=== PATIENT | male | born 1980 | race Caucasian/White ===

== ENCOUNTER 2021-02-23 13:36 | Emergency (ER) | payer BC, SELFPAY ==
--- NOTE | 2021-02-23 16:05 | XR_ITS ---
PROCEDURE INFORMATION: Exam: XR Chest Exam date and time: 02/23/2021 4:05 PM Age: 40 years old Clinical indication: Cough TECHNIQUE: Imaging protocol: XR of the chest. Views: 2 views. COMPARISON: CR XR CHEST 2V 04/25/2019 6:58 PM FINDINGS: Airway: Patent Lungs: Patchy/nodular opacification in the right suprahilar region, measuring up to 2 cm. Remainder of the lungs are grossly clear. Pleural spaces: Unremarkable. No pleural effusion. No pneumothorax. Heart/Mediastinum: Unremarkable. No cardiomegaly. Bones/joints: No acute skeletal abnormality or aggressive osseous lesion. IMPRESSION: 1. Opacification in the right suprahilar region may be related to acute infectious/inflammatory airspace disease versus a true pulmonary nodule. 2. No other acute thoracic pathology is otherwise noted. COMMENTS: Consider correlation with chest CT if clinically warranted.
[2021-02-23 16:16] VITALS: BP 116/76; PULSE 91; RESP 19; TEMP 37.3; O2SAT 98; BMI 36.7
--- NOTE | 2021-02-23 16:31 | HMH.EDUTC ---
[place] Disposition Clinical Impression: Bronchitis Disposition: Home, Self-Care Condition on Discharge: Good Instructions: DI for COVID-19 (Suspected or Confirmed ), Preventing the Spread of Coronavirus Discharge Instructions Additional Instructions: ? Start antibiotic today. Be sure to complete entire prescription even if feeling better ? Monitor temp. Tylenol every 4 hours as needed and / or ibuprofen every 6 hours as needed ( As long as your primary care physician has told you that it ok to take both. For fever/aches/pains ER if no less than 101 despite Tylenol or Motrin ? Humidifier/vaporizer or hot steamy shower ? Inhaler every 4-6 hours as needed like we discussed. If unsure how to use it, ask pharmacist to demonstrate how. Should help open airways and improve cough, wheezing, and shortness of breath ? Mucinex for your cough and congestion Be sure to drink lots of water. *Start steroid today. Helps with inflammation therefore, cough and wheezing. Follow directions on the package. Reviewed side effects. Patient reports taking them before. Follow up with your Family Doctor if no improvement Return if needed Follow up with your Family Doctor for Repeat chest xray and or CT if needed Follow up IMMEDIATELY for new or worsening of symptoms OR no noticeable improvement over the next 48-72 hours. 911 immediately for any life threatening symptoms such as chest pain or difficulty breathing You were tested for today for COVID19 your test result should be back in the next 24-48 hours, You was given handout for instructions to log onto the [facility] to view your result if you are unable to log on you may call You was given a handout with instructions for Self Quarantine and Self isolation for while you wait on test results and what to do if they are positive If you are positive the Health Dept will be contacting you also Make sure to take your Vitamins Vit. C Vit D and Zinc if you can take them Prescriptions: Doxycycline Monohydrate [Doxycycline [place] 100mg Tab] 100 mg PO Q12 7 Days #14 tab Transmission Status: Pending to [facility] #[id number] guaiFENesin [Mucinex 600mg tablet] 2 tab PO Q12H PRN #20 tab PRN Reason: Congestion Transmission Status: Pending to [facility] #[id number] predniSONE [Prednisone 20mg Tab] 20 mg PO BID 5 Days #10 tab Transmission Status: Pending to [facility] #[id number] Referrals: Chelo Zepeda MD [Primary Care Provider] - As needed Forms: Work/School Release Medical Decision Making - Clint Inquiry Pt receiving controlled substance: No Clint was queried for this patient: No Vital Signs: 02/23/21 16:16 Temperature 99.2 F Temperature Source Oral Pulse Rate [Right Brachial] 91 H Respiratory Rate 19 Blood Pressure [Right Arm] 116/76 Blood Pressure Mean [Right Arm] 89 Blood Pressure Source [Right Arm] Automatic Cuff Blood Pressure Position [Right Arm] Sitting 02 Sat by Pulse Oximetry 98 Oxygen Delivery Method Room Air Orders (Tests/Meds): ORDERS Category Date Time Status Full Resp Panel w/COVID ([facility]) Routine Lab 02/23/21 15:40 Received - Radiology Data #1 Image(s): Chest Image Reviewed: Yes I have reviewed radiologist's interpretation IMPRESSION: 1. Opacification in the right suprahilar region may be related to acute infectious/inflammatory airspace disease versus a true pulmonary nodule. 2. No other acute thoracic pathology is otherwise noted. Medical Decision Narrative: Discussed CT with patient as recommended by radiologist and he advised he would follow up with her PCP for further evaluation [place] HPI - General Stated complaint: soa, weak, diarrhea, body aches Time Seen by Provider: 02/23/21 16:31 Mode of Arrival: Ambulatory Source of Information: Patient Description of Symptoms (Recalled from Triage Doc. by RN): sob. fatigue HEENT Symptoms (Recalled from RN notes): Yes Resp Symptoms (Recalled from RN notes): Yes Skin Sympt
[2021-02-23 16:47] LABS: Adenovirus,PCR Not Detected (NotDetected); Bordetella Pertussis Not Detected (NotDetected); Chlamydophila Pneumoniae, PCR Not Detected (NotDetected); Coronavirus 229E Not Detected (NotDetected); Coronavirus NL63 Not Detected (NotDetected); Coronavirus OC43 Not Detected (NotDetected); Coronovirus HKU1,PCR Not Detected (NotDetected); Human Metapneumovirus Not Detected (NotDetected); Influenza A, PCR Not Detected (NotDetected); Influenza AH1, 2009 Not Detected (NotDetected); Influenza AH1, PCR Not Detected (NotDetected); Influenza AH3,PCR Not Detected (NotDetected); Influenza B, PCR Not Detected (NotDetected); Mycoplasma Pneumoniae, PCR Not Detected (NotDetected); Parainfluenza 1, PCR Not Detected (NotDetected); Parainfluenza 2, PCR Not Detected (NotDetected); Parainfluenza 3, PCR Not Detected (NotDetected); Parainfluenza 4, PCR Not Detected (NotDetected); Respiratory Syncytial Virus Not Detected (NotDetected); Rhinovirus/Enterovirus Not Detected (NotDetected)
[2021-02-23 17:31] VITALS: BP 116/76; PULSE 91; RESP 19; TEMP 37.3; O2SAT 98
[2021-02-23 18:03] LABS: Coronavirus 19, PCR Detected (NotDetected)
--- NOTE | 2021-02-24 16:22 | PC.NURSE ---
informed patient that he is positive
== END 2021-02-23 17:31 | disposition home or self-care (01) ==
PROVIDERS: Emergency Provider Nurse Practitioner; PCP Family Medicine
DX: U07.1 COVID-19 (principal); J20.9 Acute bronchitis, unspecified
CPT/HCPCS: 71046; 87581; 87632; 87798; 99202; C9803; G0463; U0003; U0005

== ENCOUNTER 2022-05-22 09:21 | Emergency (ER) | payer BC, SELFPAY ==
[2022-05-22 09:45] VITALS: BP 142/100; PULSE 100; RESP 20; TEMP 37.2; O2SAT 97; BMI 38.9
[2022-05-22 10:03] LABS: UTC Strep Screen (Rapid) Negative (Negative)
[2022-05-22 10:14] VITALS: BP 142/100; PULSE 100; RESP 20; TEMP 37.2; O2SAT 97
--- NOTE | 2022-05-22 10:22 | EXP.UTC ---
Discharge Plan Disposition Patient Disposition: Home, Self-Care Condition: Good Prescriptions Prescriptions: New prednisone [prednisone] 20 mg tablet 20 mg PO BID 5 Days Qty: 10 0RF amoxicillin-pot clavulanate 875-125 mg Tablet 1 tab PO Q12H Qty: 20 0RF No Action omeprazole 40 MG capsule,delayed release(DR/EC) 40 mg PO DAILY lisinopril 10 MG tablet 10 mg PO DAILY prednisone 20 MG tablet 20 mg PO BID 5 Days Qty: 10 0RF doxycycline monohydrate 100 MG tablet 100 mg PO Q12 7 Days Qty: 14 0RF guaifenesin 600 MG tablet extended release 12hr 2 tab PO Q12H PRN (Reason: Congestion) Qty: 20 0RF Referrals Follow up/Referrals: Daniela Adame [Primary Care Provider] - See instructions Activity Restrictions/Add. Instructions Additional Instructions/Restrictions: Take all meds as directed until gone Follow up with PCP or return to [facility] if not improving Clinical Impressions Clinical Impression: Right otitis media, Laceration of finger, Need for Tdap vaccination Discharge ED Provider: Yoana Bradshaw [facility] [place] H[place] General Stated complaint: Strep test, Sore throat, drainage Mode of Arrival: Ambulatory Source of Information: Patient Limitations: No Limitations Time Seen by Provider: 05/22/22 10:25 Description of Symptoms (Recalled from Triage Doc. by RN): PATIENT C/O SORE THROAT, COUGH, AND DRAINAGE X 3 DAYS HEENT Symptoms (Recalled from RN notes): Yes Resp Symptoms (Recalled from RN notes): Yes Skin Symptoms (Recalled from RN notes): No MS Symptoms (Recalled from RN notes): No Functional Status (Recalled from RN notes): WNL History of Present Illness Provider Complaint: Sore throat, drainage X 2-3 days. Fever this am. Denies sinus pressure or congestion. Denies ear pain. Denies cough. Denies nausea/vomiting/diarrhea. Cut the pads of his right thumb and 1st finger the other day and would also like to make sure they are not infected. Cannot recall exactly when he had his last tetanus shot Onset (ago): day(s) (3) Relieving factors: none Exacerbating factors: none Associated symptoms: fever/chills Treatments prior to arrival: other (cough drops) Related Data Home Medications Medication Instructions Recorded Confirmed lisinopril 10 mg tablet 10 mg PO DAILY bp 02/23/21 02/23/21 omeprazole 40 mg capsule,delayed 40 mg PO DAILY GERD 02/23/21 02/23/21 release Previous Rx's Medication Instructions Recorded doxycycline monohydrate 100 mg 100 mg PO Q12 7 days #14 tabs 02/23/21 tablet guaifenesin 600 mg tablet, 2 tab PO Q12H PRN Congestion #20 02/23/21 extended release 12 hr tabs prednisone 20 mg tablet 20 mg PO BID 5 days #10 tabs 02/23/21 amoxicillin 875 mg-potassium 1 tab PO Q12H #20 tabs 05/22/22 clavulanate 125 mg tablet prednisone 20 mg tablet 20 mg PO BID 5 days #10 tabs 05/22/22 Allergies Allergy/AdvReac Type Severity Reaction Status Date / Time No Known Allergies Allergy Verified 04/25/19 18:58 Worker's Comp Is this a Worker's Comp case?: [facility] Disclaimer: The information contained in this section may have been updated after the patient was seen, as this information can be updated by other users. Medical History (Updated 05/22/22 @ 10:38 by EDWINA Sanderson) Anxiety Asthma Hypertension Social History (Updated 05/22/22 @ 09:57 by Ne Rockwell RN) Smoking Status: Unknown if ever smoked alcohol intake: current current occupational status: other Travel in the last 8 weeks: None housing: house ROS Obtained: Yes All systems reviewed & no additional complaints except as documented Constitutional Constitutional: Reports fever(s) ENT Ears, Nose, Mouth, and Throat: Reports post nasal drip and Reports sore throat Integumentary/Breasts Skin/Breast: Reports as per HPI Physical Exam General General appearance: alert and in no apparent distress Head Head exam: atraumatic, normocephalic and normal inspection
== END 2022-05-22 10:58 | disposition home or self-care (01) ==
PROVIDERS: Emergency Provider Physician Assistant; PCP Family Medicine Sports Medicine
DX: H66.91 Otitis media, unspecified, right ear (principal); S61.211A Laceration without foreign body of left index finger without damage to nail, initial encounter; Z23 Encounter for immunization
CPT/HCPCS: 87880; 90471; 90715; 99212; G0463